=== PATIENT | male | born 1960 | race Caucasian/White ===

== ENCOUNTER → 2023-06-11 10:33 | Outpatient (REF) | payer BC, SELFPAY | LOC: MRI 3T 10:33 | PROVIDERS: ATTENDING PHYSICIAN Nurse Practitioner; FAMILY PHYSICIAN Family Medicine | DX: M54.2 Cervicalgia (principal); M54.12 Radiculopathy, cervical region; M54.50 Low back pain, unspecified | CPT/HCPCS: 72141; 72148 ==

== ENCOUNTER 2023-08-22 12:51 | Emergency (ER) | payer BC, SELFPAY ==
[2023-08-22 13:00] VITALS: BP 135/79
[2023-08-22 14:02] LABS: % Basophils 0.3 % (0-2); % Eosinophils 0.2 % (0-6); % Immature Granulocytes 0.5 % (0-0.5); % Lymphocytes 9.3 % (20.5-51.1); % Monocytes 9.3 % (1.7-9.3); % Neutrophils 80.4 % (42.2-75.2); Absolute Immature Granulocytes 0.1 10^3/uL (0-0.05); Absolute Lymphocytes 1.2 10^3/uL (1.2-3.4); Absolute Monocytes 1.2 10^3/uL (0.1-0.6); Absolute Neutrophils 10.5 10^3/uL (1.4-6.5); Hemoglobin 12.9 g/dL (13.0-18.0); Mean Corp Hgb Conc. 33.9 g/dL (33.0-37.0); Mean Corpuscular Hgb 29.7 pg (27.0-31.0); Mean Corpuscular Volume 87.4 fL (80.0-94.0); Nucleated Red Blood Cells % 0 % (-); Platelet Count 353 10^3/uL (130-400); Red Blood Cell Count 4.35 10^6/uL (4.70-6.10); Red Cell Dist. Width 12.5 % (11.5-14.5); White Blood Cell Count 13.1 10^3/uL (4.8-10.8)
[2023-08-22 14:14] LABS: ALT (SGPT) 52 U/L (0-50); AST (SGOT) 23 U/L (17-59); Albumin 3.5 g/dl (3.5-5.0); Alkaline Phosphatase 113 U/L (38-126); Blood Urea Nitrogen 14 mg/dl (9-20); Calcium 9.7 mg/dl (8.4-10.2); Carbon Dioxide 26 mmol/L (22-30); Chloride 103 mmol/L (98-107); Glucose 131 mg/dl (70-99); Potassium 4.3 mmol/L (3.5-5.1); Sodium 135 mmol/L (135-145); Total Bilirubin 0.6 mg/dl (0.2-1.3); eGFR > 60.00
[2023-08-22 14:16] LABS: Lactic Acid 1.7 mmol/L (0.7-2.0)
--- NOTE | 2023-08-22 14:52 | ED.GENMED ---
History of Present Illness
General
Chief Complaint: Abdominal Pain
Source: patient and family
Exam Limitations: none
Time Seen by Provider: 08/22/23 13:29
Nursing documentation reviewed up to this point in time: agreed with
History of Present Illness
History of Present Illness:
62-year male referred from Dr. Hutson for evaluation of extremity swelling and chills, patient has a distant history of rheumatologic condition, has seen Dr. Bullock, not in many years interestingly the son has rheumatoid arthritis, patient had a
few months of upper and lower extremity swelling hip pain hand swelling saw physician today was having some shakes in the office referred here throat anything infectious as patient was having some lower abdominal pain as well no documented fevers,
no vomiting, no rashes, patient has a prescription for prednisone already called into the pharmacy if his workup is negative
Past History
Past History
ED Past Medical History: CAD and Other
ED Past Surgical History: Orthopedic
Social History
Tobacco: Smoker
Alcohol: Occasional
Drug: None
Personal:
Living: with family
Employment: Disabled
Review of Systems
Review of Systems
All Other Systems: Not applicable
Constitutional: Reports chills (? Versus shakes); Denies fever or fatigue
EENT: Reports no symptoms
Respiratory: Reports no symptoms
Cardiac: Reports no symptoms
ABD/GI: Reports abdominal pain; Denies nausea or diarrhea
: Reports no symptoms
Musculoskeletal: Reports joint pain, muscle pain, muscle stiffness and edema
Skin: Denies rash
Neurological: Reports no symptoms
Endocrine: Reports no symptoms
Phy Exam
Physical Exam
Physical Exam:
Physical Exam
General: Nontoxic chronically ill-appearing male
Neck: No joint
Heart: Regular
Lungs: no acute respiratory distress.
Abdomen: Mild left lower abdominal tender
Neuro: alert and oriented. no focal neurological deficits
Skin: no rash
Psychiatric: well kept. interactive and cooperative
Extremities: Moderate symmetric edema and swelling of the hands, mild swelling of the elbows positive bilateral ankle and feet swelling mildly swollen
Course
Orders/Labs/Results
Orders:
Orders
08/22/23 13:30
Urinalysis Reflex To Culture Urgent
08/22/23 13:46
C-Reactive Protein Urgent
Comment: ADD ON
Complete Blood Count/With Diff Urgent
Comprehensive Metabolic Panel Urgent
Erythrocyte Sed Rate Urgent
Comment: ADD ON
Lactic Acid Q4H
Comment: CANCEL 2nd LACTIC ACID IF 1st LACTIC ACID IS LESS THAN 2
Blood Culture Q30M
HELEN Source: Blood/Venous
Specimen Description:
Blood Culture Q30M
HELEN Source: Blood/Venous
Specimen Description:
08/22/23 14:06
Add On- LAB Urgent
Tests Added?: crp/esr/
Rectal Temp- Treatment ONCE
08/22/23 14:19
CT Abd/pelvis W Iv Cont Urgent
Comment:
Reason For Exam: chills lower abd pain
08/22/23 15:49
LevoFLOXacin [Levaquin] 500 mg PO NOW STA
MetroNIDAZOLE [Flagyl] 250 mg PO NOW STA
Abnormal Lab Results
08/22/23
13:46
WBC 13.1 H 10^3/uL
(4.8-10.8)
RBC 4.35 L 10^6/uL
(4.70-6.10)
Hgb 12.9 L g/dL
(13.0-18.0)
Hct 38.0 L %
(39.0-52.0)
Abs Immat Gran (auto) 0.1 H 10^3/uL
(0-0.05)
Absolute Neuts (auto) 10.5 H 10^3/uL
(1.4-6.5)
Absolute Monos (auto) 1.2 H 10^3/uL
(0.1-0.6)
Neutrophils % 80.4 H %
(42.2-75.2)
Lymphocytes % 9.3 L %
(20.5-51.1)
ESR 25 H mm/hour
(0-20)
Creatinine 0.6 L mg/dL
(0.7-1.3)
Glucose 131 H mg/dl
(70-99)
ALT 52 H U/L
(0-50)
C-Reactive Protein 136.90 H mg/L
(0.0-10.00)
Total Protein 6.0 L g/dl
(6.3-8.2)
08/22/23 13:46
08/22/23 13:46
Vital Signs
Initial and Last Documented VS:
Initial Vital Signs
Temp Pulse Resp BP Pulse Ox
98.9 F 94 18 135/79 99
08/22/23 13:00 08/22/23 13:00 08/22/23 13:00 08/22/23 13:00 08/22/23 13:00
Last Documented Vital Signs
Temp Pulse Resp BP Pulse Ox
98.2 F 95 22 113/83 95
08/22/23 14:06 08/22/23 15:15 08/22/23 15:15 08/22/23 15:10 08/22/23 15:15
MDM/Problems Addressed
Differential Diagnosis Includes:
RA, polyarthropathy, other rheumatologic condition perhaps concomitant intra-abdominal condition
MDM/Problems Addressed:
Chills, joint swelling abdominal pain
Chronic conditions affecting care:
Rheumatologic
Acute Exacerbation and/or Progression of Chronic Illness:
Rheumatologic condition
*Radiology
Radiology exam reviewed: preliminary read by ED provider
*Pulse Oximetry
Patient hypoxic: no
*Edge Burnisher Interpretation
Rate: Edge Burnisher- N/A
*Critical Care Note
Total Time (30-74mins, 75-104mins- exclusive of procedures): Not Applicable
Data Reviewed
Review of Other/Old Records Reveals: Labs
Source: patient and family
Update Note
Update Note:
Update suspect primary rheumatologic condition, labs are cooking white count modestly elevated blood cultures have been sent, CAT scan is completed report pending plan will be to touch base with his referring physician when data set has returned
Update, CT noted labs are noted reviewed referring physician, allergies are noted will have the patient not take his prescription for prednisone until he takes a course of antibiotics for diverticulitis patient appears well he is eating here,
reviewed thought process with him
ED Attending Note
-
Portions of this chart may have been created with voice recognition software.� Occasional wrong word or��sound alike� substitutions may have occurred due to the inherent limitations of voice recognition software.
Discharge Plan
Departure
Patient Disposition: Home (Routine Discharge)
Date of Disposition: 08/22/23
Time of Disposition: 15:50
Patient with high blood pressure during this ER visit?: No
Condition: Good
Discharge Problem:
Diverticulitis large intestine
Instructions: Diverticulitis (DC)
Prescriptions:
New
metronidazole 250 mg tablet
250 mg PO BID 10 Days Qty: 20 0RF
levofloxacin 500 mg tablet
500 mg PO DAILY 10 Days Qty: 10 0RF
No Action
Restoril
22.5 mg PO HS PRN (Reason: insomnia)
Avinza
30 mg PO DAILY
Edular
1 tab PO PRN PRN (Reason: insomnia)
morphine 15 MG tablet
15 mg PO DAILYPRN PRN (Reason: pain)
atorvastatin 80 MG tablet
80 mg PO QPM
clopidogrel 75 MG tablet
75 mg PO DAILY
aspirin [Ecotrin Low Strength] 81 MG tablet,delayed release (DR/EC)
81 mg PO DAILY
Metoprolol 0.5 TABLET
0.5 tab PO DAILY
hydrocodone-acetaminophen [Vicodin] 1 EACH tablet
1 ea PO Q6HPRN PRN (Reason: pain) Qty: 15 0RF
ondansetron 4 MG tablet,disintegrating
4 mg PO TIDPRN PRN (Reason: NAUSEA) Qty: 15 0RF
Referrals:
Rodrigo Hutson MD [Family Provider] - Follow up in 1 week
Activity Restrictions/Additional Instructions:
Take antibiotics as prescribed, do not take prednisone until you have discussed this with Dr. Hutson
Do not drink alcohol while taking Flagyl antibiotic
Interventions
Interventions:
*Risk Screen - Suicide Last Done: 08/22/23 13:00
*General Assessment Last Done: 08/22/23 13:00
*Neglect/Abuse Screening Last Done: 08/22/23 13:00
ED- Fall Risk Assessment Last Done: 08/22/23 14:48
BC-Qddely-Avcsotqjvu Assessment Last Done: 08/22/23 14:50
ED- Cardiac Assessment Last Done: 08/22/23 14:48
ED- Neurological Assessment Last Done: 08/22/23 14:48
ED- Pulmonary Assessment Last Done: 08/22/23 13:57
ED-Skin Assessment Last Done: 08/22/23 13:57
Discharge Date and Time
Print Language: URDU
[2023-08-22 15:10] VITALS: BP 113/83
[2023-08-22 15:43] LABS: Erythrocyte Sed Rate 25 mm/hour (0-20)
[2023-08-22 16:00] VITALS: BP 102/66
[2023-08-22] MEDS: LEVAQUIN 500 MG PO (16:19)
[2023-08-22] MEDS: TORADOL 30 MG IV (16:20)
[2023-08-22 16:40] VITALS: BP 101/71
[2023-08-22] MEDS: FLAGYL 500 MG PO (16:43)
== END 2023-08-22 16:52 | disposition home or self-care (01) ==
LOC: EMR 12:51
PROVIDERS: EMERGENCY PHYSICIAN Emergency Medicine; FAMILY PHYSICIAN Family Medicine
DX: K57.32 Diverticulitis of large intestine without perforation or abscess without bleeding (principal); F17.200 Nicotine dependence, unspecified, uncomplicated
CPT/HCPCS: 99285; 96374; 74177; 80053; 83605; 85025; 85652; 86140; 87040; Q9967

== ENCOUNTER → 2023-09-16 15:13 | Outpatient (REF) | payer BC, SELFPAY | LOC: RAD 15:13 | PROVIDERS: ATTENDING PHYSICIAN Physician Assistant; FAMILY PHYSICIAN Family Medicine | DX: M06.4 Inflammatory polyarthropathy (principal); M25.539 Pain in unspecified wrist; M25.559 Pain in unspecified hip; M25.579 Pain in unspecified ankle and joints of unspecified foot; M79.643 Pain in unspecified hand; M79.673 Pain in unspecified foot | CPT/HCPCS: 73110; 73130; 73523; 73610; 73630 ==